=== PATIENT | male | born 1940 | race Caucasian/White ===

== ENCOUNTER 2021-07-23 19:04 | Inpatient (IN) | payer MEDICARE, OTHER ==
[~2021-07-23] VITALS: Ht 172.7 cm; Wt 61.7 kg
[~2021-07-23 19:04] MED LIST: ATOR-2 PO; ETOMIDATE 2MG/ML 10ML VIAL IV ONE; SUCCINYLCHOLINE CHLORIDE 200MG/10ML IV ONE; VERA240C2 PO; WARF-53 PO
[2021-07-23] MEDS: ACETAMINOPHEN 325MG TABLET PO STA ×2 (19:22→22:13)
[2021-07-23] MEDS ORDERED: SODIUM CHLORIDE 0.9% 1000ML BAG (SEPSIS BOLUS) IV ONE (19:30)
[2021-07-23 19:39] LABS: CHLORIDE 106 mEq/L (98-107)
[2021-07-23 19:42] LABS: INR 1.6; PROTHROMBIN TIME 16.1 sec (9.6-11.0)
[2021-07-23] MEDS ORDERED: PIPERACILLIN/TAZ 3.375G PREMIX 50 ML IV NR (19:44)
[2021-07-23] MEDS ORDERED: PIPERACILLIN/TAZOBACTAM 3.375GM/50ML PREMIX IV ONE (19:45)
[2021-07-23] MEDS ORDERED: AMIODARONE HCL 900 MG in DEXT 5% WATER 482 ML IV SCH ×2 (20:30→20:45)
[2021-07-23] MEDS ORDERED: AMIODARONE HCL 150 MG in DEXT 5% WATER 100 ML IV ONE (20:30)
[2021-07-23 21:03] LABS: BASOPHILS % 0.4 % (0.0-2.0); EOSINOPHILS % 0.5 % (0.0-5.0); HEMATOCRIT. 37.7 % (42.0-52.0); HEMOGLOBIN. 12.3 g/dL (14.0-18.0); MEAN CORPUSCULAR HEMOGLOBIN 34.2 pg (28.0-32.0); MEAN CORPUSCULAR VOLUME 104.8 fL (80.0-94.0); MONOCYTES % 9.6 % (2.0-8.0); NEUTROPHILS % 65.5 % (40.0-76.0); RED CELL DISTRIBUTION WIDTH 16.7 % (11.6-14.6)
[2021-07-23] MEDS ORDERED: MANNITOL 12.5G (25%) VIAL 50ML IV ONE (22:15)
[2021-07-23] MEDS ORDERED: DEXAMETHASONE 4MG/ML 1ML VIAL IV ONE (22:15)
[2021-07-23] MEDS ORDERED: LEVETIRACETAM 500MG PREMIX 100 ML IV ONE (22:15)
[2021-07-23] MEDS ORDERED: NICARDIPINE 100 MG in SODIUM CHLORIDE 0.9% 60 ML IV PRN (23:00)
[2021-07-24] VITALS (89 sets, daily range): BP systolic 78–141; BP diastolic 23–89
[2021-07-24] MEDS: DEXT 5%/LACTATED RINGERS 1,000 ML IV SCH ×2 (03:16→20:30)
[2021-07-24] MEDS: PHYTONADIONE 10MG/ML AMP SUBCUT SCH (03:19)
[2021-07-24] MEDS ORDERED: IOHEXOL-350 100 ML BOTTLE ONE (03:45)
[2021-07-24] MEDS ORDERED: MANNITOL 12.5G (25%) VIAL 50ML IV SCH (04:00)
[2021-07-24] MEDS ORDERED: LIDOCAINE HCL/EPINEPHRINE 1%-EPI 1:100,000 30 ML VIAL INFIL ONE (06:20)
[2021-07-24] MEDS ORDERED: GENTAMICIN SULF 40MG/ML 2ML VIAL ONE (06:20)
[2021-07-24] MEDS ORDERED: LACTATED RINGERS 3,000 ML IV ONE (06:21)
[2021-07-24] MEDS ORDERED: BACITRACIN 15GM TUBE TOP ONE (06:21)
[2021-07-24] MEDS ORDERED: THROMBIN (BOVINE) 5000 UNITS/VIAL TOP ONE (06:21)
[2021-07-24] MEDS ORDERED: ROCURONIUM BROMIDE 10MG/ML VIAL 5ML IV ONE (08:26)
[2021-07-24] MEDS ORDERED: NEOSTIGMINE METHYLSULFATE 1MG/ML 10 ML VIAL ONE (08:26)
[2021-07-24] MEDS ORDERED: PROPOFOL 200MG/20ML VIAL IV ONE (08:26)
[2021-07-24] MEDS ORDERED: MIDAZOLAM HCL 2 MG/2 ML VIAL ONE (08:26)
[2021-07-24] MEDS ORDERED: FENTANYL CITRATE/PF 50MCG/ML 2ML VIAL ONE (08:26)
[2021-07-24] MEDS ORDERED: GLYCOPYRROLATE 0.2 MG/ML 2ML VIAL ONE (08:27)
[2021-07-24 08:48] LABS: CLARITY URINE CLEAR (CLEAR); COLOR URINE YELLOW (YELLOW); KETONES URINE NEGATIVE (NEGATIVE); LEUKOCYTE ESTERASE URINE TRACE (NEGATIVE); NITRITE URINE NEGATIVE (NEGATIVE); OCCULT BLOOD URINE 2+ (NEGATIVE); PROTEIN URINE 1+ (NEGATIVE); SPECIFIC GRAVITY URINE 1.067 (1.005-1.030); UROBILINOGEN URINE 0.2 E.U./dL (0.2-1.0)
[2021-07-24] MEDS ORDERED: MORPHINE SULFATE 2 MG/ML CPJ (NOT FOR IM USE) IV PRN (09:00)
[2021-07-24 09:07] LABS: *AMPHETAMINES SCREEN URINE NEGATIVE (NEGATIVE)
[2021-07-24 09:08] LABS: *BARBITURATES SCREEN URINE NEGATIVE (NEGATIVE); *BENZODIAZEPINES SCREEN URINE NEGATIVE (NEGATIVE); *COCAINE SCREEN URINE NEGATIVE (NEGATIVE); METHADONE URINE SCREEN NEGATIVE (NEGATIVE); OPIATES URINE SCREEN NEGATIVE (NEGATIVE); PHENCYCLIDINE URINE SCREEN NEGATIVE (NEGATIVE)
[2021-07-24 09:09] LABS: CANNABINOID URINE SCREEN NEGATIVE (NEGATIVE)
[2021-07-24] MEDS ORDERED: ONDANSETRON HCL 4MG/2ML INJ ONE (09:19)
[2021-07-24] MEDS ORDERED: DEXAMETHASONE 4MG/ML 1ML VIAL ONE (09:19)
[2021-07-24] MEDS ORDERED: LIDOCAINE HCL 1% 10 MG/ML 10ML VIAL ONE (09:20)
[2021-07-24] MEDS ORDERED: CEFAZOLIN SODIUM 1000MG/VIAL ONE (09:20)
[2021-07-24] MEDS ORDERED: SODIUM CHLORIDE 0.9% 10ML VIAL ONE (09:20)
[2021-07-24] MEDS: PANTOPRAZOLE SODIUM 40 MG/VIAL IV SCH (09:45)
[2021-07-24] MEDS: LEVETIRACETAM 500MG PREMIX 100 ML IV SCH ×2 (09:46→20:30)
[2021-07-24] MEDS ORDERED: CHOL2000 (11:28)
[2021-07-24] MEDS ORDERED: SPIR25TA6 PO (11:29)
[2021-07-24] MEDS ORDERED: METF-873 MT (11:30)
[2021-07-24] MEDS ORDERED: CLOP75TA33 MT (11:30)
[2021-07-24] MEDS ORDERED: ROSU40TA MT (11:30)
[2021-07-24] MEDS ORDERED: ENZA40CA PO (11:31)
[2021-07-24] MEDS ORDERED: SACU1TAB MT (11:33)
[2021-07-24] MEDS ORDERED: METO-539 MT (11:33)
[2021-07-24] MEDS ORDERED: APIX5TAB MT (11:33)
[2021-07-24] MEDS ORDERED: *PATIENT'S OWN MEDICATION STORAGE XX SCH (12:45)
[2021-07-24] MEDS ORDERED: AMIODARONE HCL 900 MG in DEXT 5% WATER 482 ML IV PRN (13:00)
[2021-07-24 13:14] LABS: BASOPHILS % 0.1 % (0.0-2.0); HEMATOCRIT. 31.7 % (42.0-52.0); MEAN CORPUSCULAR HEMOGLOBIN 34.7 pg (28.0-32.0); MEAN CORPUSCULAR VOLUME 104.8 fL (80.0-94.0); MEAN PLATELET VOLUME 9.9 fl (7.4-10.4); MONOCYTES % 6.5 % (2.0-8.0); NEUTROPHILS % 77.4 % (40.0-76.0); PLATELET 69 x1000/uL (130-400); RED BLOOD CELL COUNT 3.03 mill/uL (4.7-6.1); RED CELL DISTRIBUTION WIDTH 16.9 % (11.6-14.6)
[2021-07-24 13:20] LABS: CHLORIDE 107 mEq/L (98-107)
[2021-07-24 13:22] LABS: INR 1.4; PROTHROMBIN TIME 15.1 sec (9.6-11.0)
[2021-07-24 13:24] LABS: HEMOGLOBIN. 10.5 g/dL (14.0-18.0)
[2021-07-24] MEDS: CEFAZOLIN 1000MG PREMIX 50 ML IV SCH ×2 (13:47→21:43)
[2021-07-24] MEDS ORDERED: CEFAZOLIN SODIUM 1000MG/VIAL IV SCH (14:00)
[2021-07-24 20:52] LABS: BG BASE EXCESS -4.6 mmol/L (-2.0-2.0); BG CARBOXYHEMOGLOBIN 0.2 % (0.5-1.5); BG DEOXYHEMOGLOBIN 0.9 % (0.0-5.0); BG FRACTION INSPIRED OXYGEN 100; BG HCO3 ACT 17.3 mmol/L (22.0-26.0); BG METHEMOGLOBIN 0.1 % (0.0-1.5); BG OXYGEN SATURATION 99.1 % (92.0-98.5); BG OXYHEMOGLOBIN 98.8 % (94.0-97.0); BG PCO2 23.4 mmHg (35.0-45.0); BG PH 7.487 (7.350-7.450); BG PO2 291.7 mmHg (75.0-100.0); BG SAMPLE SITE RIGHT RADIAL; BG TOTAL HEMOGLOBIN 10.8 g/dL (12.0-18.0); BG VENT MODE MASK - NRB
[2021-07-24] MEDS ORDERED: PHENYTOIN SODIUM 500 MG in SODIUM CHLORIDE 0.9% 50 ML IV NR (21:00)
[2021-07-24] MEDS: PHENYTOIN SODIUM 100MG/2ML VIAL IV SCH (21:42)
[2021-07-25] VITALS (89 sets, daily range): BP systolic 74–113; BP diastolic 29–75
[2021-07-25 05:28] LABS: BASOPHILS % 0.1 % (0.0-2.0); HEMATOCRIT. 29.5 % (42.0-52.0); LYMPHOCYTES % 12.9 % (20.0-50.0); MEAN CORPUSCULAR HEMOGLOBIN 34.9 pg (28.0-32.0); MEAN CORPUSCULAR VOLUME 103.2 fL (80.0-94.0); MEAN PLATELET VOLUME 9.9 fl (7.4-10.4); MONOCYTES % 8.5 % (2.0-8.0); NEUTROPHILS % 78.5 % (40.0-76.0); RED BLOOD CELL COUNT 2.86 mill/uL (4.7-6.1); RED CELL DISTRIBUTION WIDTH 16.9 % (11.6-14.6)
[2021-07-25 06:26] LABS: BG BASE EXCESS -7.2 mmol/L (-2.0-2.0); BG CARBOXYHEMOGLOBIN 0.3 % (0.5-1.5); BG DEOXYHEMOGLOBIN 1.1 % (0.0-5.0); BG FRACTION INSPIRED OXYGEN 60; BG HCO3 ACT 14.8 mmol/L (22.0-26.0); BG METHEMOGLOBIN 0.3 % (0.0-1.5); BG OXYGEN SATURATION 98.9 % (92.0-98.5); BG OXYHEMOGLOBIN 98.3 % (94.0-97.0); BG PCO2 20.6 mmHg (35.0-45.0); BG PH 7.473 (7.350-7.450); BG PO2 206.4 mmHg (75.0-100.0); BG TOTAL HEMOGLOBIN 10.4 g/dL (12.0-18.0); BG TOTAL RESPIRATORY RATE 25 b/min; BG VENT MODE VENT - AC
[2021-07-25 06:42] LABS: PLATELET 43 x1000/uL (130-400)
[2021-07-25] MEDS: PHENYTOIN SODIUM 100MG/2ML VIAL IV SCH ×3 (07:43→21:26)
[2021-07-25] MEDS: CEFAZOLIN 1000MG PREMIX 50 ML IV SCH ×3 (07:44→21:25)
[2021-07-25] MEDS: LEVETIRACETAM 500MG PREMIX 100 ML IV SCH ×2 (07:47→21:26)
[2021-07-25] MEDS: PANTOPRAZOLE SODIUM 40 MG/VIAL IV SCH (07:47)
[2021-07-25] MEDS: PHYTONADIONE 10MG/ML AMP SUBCUT SCH (07:47)
[2021-07-25] MEDS ORDERED: SODIUM BICARBONATE 8.4% 1 MEQ/ML 50ML SYR IV NR ×2 (09:15→23:00)
[2021-07-25] MEDS: DEXT 5%/0.45% NACL 1000ML 1,000 ML IV SCH ×2 (09:24→21:26)
[2021-07-25] MEDS ORDERED: DIGOXIN 500MCG/2ML AMP IV NR (12:15)
[2021-07-25] MEDS: PIPERACILLIN/TAZOBACTAM 3.375 G in DEXTROSE 5% WATER 50 ML IV SCH ×2 (12:54→21:27)
[2021-07-25] MEDS ORDERED: NALOXONE HCL 0.4MG/ML VIAL IV PRN (14:15)
[2021-07-25] MEDS: PHENYLEPHRINE 100 MG in DEXT 5% WATER 240 ML IV PRN (17:23)
[2021-07-25] MEDS ORDERED: SODIUM CHLORIDE 0.9% 1,000 ML IV SCH (19:00)
[2021-07-25 22:40] LABS: BG BASE EXCESS -14.2 mmol/L (-2.0-2.0); BG CARBOXYHEMOGLOBIN 0.2 % (0.5-1.5); BG DEOXYHEMOGLOBIN 1.3 % (0.0-5.0); BG FRACTION INSPIRED OXYGEN 100; BG METHEMOGLOBIN 0.5 % (0.0-1.5); BG OXYGEN SATURATION 98.7 % (92.0-98.5); BG PCO2 15.6 mmHg (35.0-45.0); BG PH 7.378 (7.350-7.450); BG SAMPLE SITE RIGHT FEMORAL; BG TOTAL HEMOGLOBIN 9.2 g/dL (12.0-18.0); BG VENT MODE VENT - AC
[2021-07-25] MEDS ORDERED: SODIUM CHLORIDE 0.9% 1,000 ML IV ONE (23:00)
[2021-07-26] VITALS (138 sets, daily range): BP systolic 60–136; BP diastolic 23–89
[2021-07-26] MEDS: CEFAZOLIN 1000MG PREMIX 50 ML IV SCH (06:00)
[2021-07-26 06:31] LABS: HEMATOCRIT. 34.7 % (42.0-52.0); HEMOGLOBIN. 10.4 g/dL (14.0-18.0); MEAN CORPUSCULAR HEMOGLOBIN 34.8 pg (28.0-32.0); MEAN CORPUSCULAR VOLUME 115.9 fL (80.0-94.0); MEAN PLATELET VOLUME 10.8 fl (7.4-10.4); RED BLOOD CELL COUNT 2.99 mill/uL (4.7-6.1); RED CELL DISTRIBUTION WIDTH 19.1 % (11.6-14.6)
[2021-07-26 07:21] LABS: PLATELET 30 x1000/uL (130-400)
[2021-07-26] MEDS: NOREPINEPHRINE 8 MG in DEXT 5% WATER 242 ML IV PRN ×5 (07:27→21:50)
[2021-07-26] MEDS ORDERED: DEXTROSE 50% WATER 50ML SYRINGE IV ONE (07:30)
[2021-07-26] MEDS ORDERED: DEXTROSE 50% WATER 50ML SYRINGE IV NR (07:30)
[2021-07-26] MEDS ORDERED: INSULIN REGULAR (HUMULIN R) 300UNITS/3ML VIAL IV NR (07:30)
[2021-07-26] MEDS ORDERED: CALCIUM CHLORIDE 1GM/10ML SYR IV ONE (07:30)
[2021-07-26] MEDS: SODIUM BICARBONATE 8.4% 1 MEQ/ML 50ML SYR IV NR ×2 (07:50→09:41)
[2021-07-26] MEDS ORDERED: CALCIUM CHLORIDE 1GM/10ML SYR IV NR (08:00)
[2021-07-26] MEDS ORDERED: LIDOCAINE HCL 1% 20ML VIAL (Pyxis) INJ ONE (08:04)
[2021-07-26 09:06] LABS: BG BASE EXCESS -18.1 mmol/L (-2.0-2.0); BG CARBOXYHEMOGLOBIN 0.3 % (0.5-1.5); BG DEOXYHEMOGLOBIN 0.8 % (0.0-5.0); BG FRACTION INSPIRED OXYGEN 100; BG HCO3 ACT 8.1 mmol/L (22.0-26.0); BG METHEMOGLOBIN 0.4 % (0.0-1.5); BG OXYGEN SATURATION 99.2 % (92.0-98.5); BG OXYHEMOGLOBIN 98.5 % (94.0-97.0); BG PCO2 20.9 mmHg (35.0-45.0); BG PH 7.207 (7.350-7.450); BG PO2 303.7 mmHg (75.0-100.0); BG SAMPLE SITE RIGHT FEMORAL; BG TOTAL HEMOGLOBIN 8.8 g/dL (12.0-18.0); BG VENT MODE VENT - AC
[2021-07-26] MEDS: PANTOPRAZOLE SODIUM 40 MG/VIAL IV SCH (09:41)
[2021-07-26] MEDS: PIPERACILLIN/TAZOBACTAM 3.375 G in DEXTROSE 5% WATER 50 ML IV SCH ×3 (09:41→21:58)
[2021-07-26] MEDS: PHENYTOIN SODIUM 100MG/2ML VIAL IV SCH ×3 (09:41→21:56)
[2021-07-26] MEDS: LEVETIRACETAM 500MG PREMIX 100 ML IV SCH ×2 (09:41→21:51)
[2021-07-26] MEDS: PHYTONADIONE 10MG/ML AMP SUBCUT SCH (09:44)
[2021-07-26] MEDS ORDERED: SODIUM BICARBONATE 8.4% 1 MEQ/ML 50ML SYR IV NR (11:00)
[2021-07-26] MEDS: SODIUM BICARBONATE 100 MEQ in DEXTROSE 5% WATER 1,000 ML IV SCH (12:45)
[2021-07-26] MEDS ORDERED: SODIUM POLYSTYRENE SULFONATE 15 G/60 ML BOT PR NR (13:00)
[2021-07-26 16:34] LABS: BG BASE EXCESS -12.7 mmol/L (-2.0-2.0); BG CARBOXYHEMOGLOBIN 0.3 % (0.5-1.5); BG DEOXYHEMOGLOBIN 1.3 % (0.0-5.0); BG FRACTION INSPIRED OXYGEN 100; BG METHEMOGLOBIN 0.7 % (0.0-1.5); BG OXYGEN SATURATION 98.7 % (92.0-98.5); BG OXYHEMOGLOBIN 97.7 % (94.0-97.0); BG PCO2 19.4 mmHg (35.0-45.0); BG PH 7.371 (7.350-7.450); BG PO2 191.3 mmHg (75.0-100.0); BG SAMPLE SITE RIGHT RADIAL; BG TOTAL HEMOGLOBIN 8.5 g/dL (12.0-18.0); BG VENT MODE VENT - AC
[2021-07-26 17:04] LABS: NUCLEATED RED BLOOD CELLS 18 /100 WBC; PLATELET ESTIMATE MARKEDLY DECREASED
[2021-07-26] MEDS: DEXT 5%/0.45% NACL 1000ML 1,000 ML IV SCH (19:20)
[2021-07-26] MEDS: VASOPRESSIN 20 UNIT in SODIUM CHLORIDE 0.9% 99 ML IV PRN (19:45)
[2021-07-26] MEDS: PHENYLEPHRINE 100 MG in DEXT 5% WATER 240 ML IV PRN (22:00)
[2021-07-26] MEDS: DOPAMINE 400MG/250ML PREMIX 250 ML IV PRN (22:33)
[2021-07-27] VITALS (29 sets, daily range): BP systolic 38–108; BP diastolic 27–48
[2021-07-27] MEDS: NOREPINEPHRINE 32 MG in DEXT 5% WATER 218 ML IV PRN ×3 (02:05→08:12)
[2021-07-27] MEDS: VASOPRESSIN 20 UNIT in SODIUM CHLORIDE 0.9% 99 ML IV PRN (02:39)
[2021-07-27] MEDS: DOPAMINE 400MG/250ML PREMIX 250 ML IV PRN ×2 (02:39→09:02)
[2021-07-27] MEDS: SODIUM BICARBONATE 100 MEQ in DEXTROSE 5% WATER 1,000 ML IV SCH (03:10)
[2021-07-27] MEDS: PIPERACILLIN/TAZOBACTAM 3.375 G in DEXTROSE 5% WATER 50 ML IV SCH (05:36)
[2021-07-27] MEDS: PHENYTOIN SODIUM 100MG/2ML VIAL IV SCH (06:27)
[2021-07-27] MEDS: EPINEPHRINE 10 MG in SODIUM CHLORIDE 0.9% 240 ML IV PRN ×2 (06:30→09:02)
[2021-07-27] MEDS ORDERED: SODIUM BICARBONATE 8.4% 1 MEQ/ML 50ML SYR IV NR ×2 (08:00→08:15)
[2021-07-27] MEDS: PHENYLEPHRINE 100 MG in DEXT 5% WATER 240 ML IV PRN (08:13)
[2021-07-27] MEDS: LEVETIRACETAM 500MG PREMIX 100 ML IV SCH (08:13)
[2021-07-27] MEDS: PANTOPRAZOLE SODIUM 40 MG/VIAL IV SCH (08:13)
[2021-07-27] MEDS ORDERED: INSULIN REGULAR (HUMULIN R) 300UNITS/3ML VIAL IV NR (08:15)
[2021-07-27] MEDS ORDERED: DEXTROSE 50% WATER 50ML SYRINGE IV NR (08:15)
[2021-07-27] MEDS ORDERED: EPINEPHRINE 0.1MG/ML (1:10,000) 10ML SYR ONE (08:48)
[2021-07-27] MEDS ORDERED: CALCIUM CHLORIDE 1GM/10ML SYR IV ONE (08:48)
[2021-07-27] MEDS ORDERED: ATROPINE SULFATE 1MG/10ML SYR ONE (08:48)
[2021-07-27] MEDS ORDERED: SODIUM BICARBONATE 8.4% 1 MEQ/ML 50ML SYR IV ONE (08:48)
[2021-07-27] MEDS ORDERED: DEXTROSE 50% WATER 50ML SYRINGE IV ONE (08:48)
[2021-07-27 09:38] LABS: BG HCO3 ACT 10.3 mmol/L (22.0-26.0); BG PCO2 33.4 mmHg (35.0-45.0); BG PH 7.105 (7.350-7.450); BG PO2 177.1 mmHg (75.0-100.0); BG SAMPLE SITE RIGHT FEMORAL; BG TOTAL HEMOGLOBIN < 4.5 g/dL (12.0-18.0); BG VENT MODE VENT - AC
[2021-07-27] MEDS ORDERED: SODIUM POLYSTYRENE SULFONATE 15 G/60 ML BOT PR NR (10:00)
[2021-07-27] MEDS ORDERED: SODIUM BICARBONATE 8.4% 1 MEQ/ML 50ML SYR IV SCH (12:00)
[2021-07-27 20:18] LABS: PLATELET 36 x1000/uL (130-400)
== END 2021-07-27 09:37 | DRG 853 ==
LOC: ER 19:04 → MICUNO 20:53 → ENRESERV 07-24 00:18
PROVIDERS: ADMIT Internal Medicine; ATTEND Internal Medicine
PROC: 00C40ZZ Extirpation of Matter from Intracranial Subdural Space, Open Approach (ICD-10-PCS; principal; 2021-07-24)
PROC: 30233K1 Transfusion of Nonautologous Frozen Plasma into Peripheral Vein, Percutaneous Approach (ICD-10-PCS; 2021-07-24)
PROC: 30233R1 Transfusion of Nonautologous Platelets into Peripheral Vein, Percutaneous Approach (ICD-10-PCS; 2021-07-24)
PROC: 5A2204Z Restoration of Cardiac Rhythm, Single (ICD-10-PCS; 2021-07-25)
PROC: B54MZZA Ultrasonography of Right Upper Extremity Veins, Guidance (ICD-10-PCS; 2021-07-26)
PROC: 05HY33Z Insertion of Infusion Device into Upper Vein, Percutaneous Approach (ICD-10-PCS; 2021-07-26)
PROC: 5A12012 Performance of Cardiac Output, Single, Manual (ICD-10-PCS; 2021-07-27)
PROC: 5A2204Z Restoration of Cardiac Rhythm, Single (ICD-10-PCS; 2021-07-27)
DX: A41.9 Sepsis, unspecified organism (principal); S06.6X9A Traumatic subarachnoid hemorrhage with loss of consciousness of unspecified duration, initial encounter; S06.5X9A Traumatic subdural hemorrhage with loss of consciousness of unspecified duration, initial encounter; E43 Unspecified severe protein-calorie malnutrition; G93.41 Metabolic encephalopathy; I21.4 Non-ST elevation (NSTEMI) myocardial infarction; J18.9 Pneumonia, unspecified organism; J96.01 Acute respiratory failure with hypoxia; G93.6 Cerebral edema; I47.2 Ventricular tachycardia; I50.22 Chronic systolic (congestive) heart failure; N17.9 Acute kidney failure, unspecified; N39.0 Urinary tract infection, site not specified; I48.92 Unspecified atrial flutter; D68.9 Coagulation defect, unspecified; E87.5 Hyperkalemia; Z20.822 Contact with and (suspected) exposure to COVID-19; D64.9 Anemia, unspecified; D69.6 Thrombocytopenia, unspecified; I48.0 Paroxysmal atrial fibrillation; W18.39XA Other fall on same level, initial encounter; I11.0 Hypertensive heart disease with heart failure; I25.10 Atherosclerotic heart disease of native coronary artery without angina pectoris; I25.5 Ischemic cardiomyopathy; I34.0 Nonrheumatic mitral (valve) insufficiency; Z79.01 Long term (current) use of anticoagulants; Z87.891 Personal history of nicotine dependence; Z85.46 Personal history of malignant neoplasm of prostate; Z95.1 Presence of aortocoronary bypass graft; Y93.89 Activity, other specified; Y92.89 Other specified places as the place of occurrence of the external cause; Y99.8 Other external cause status; Z68.20 Body mass index [BMI] 20.0-20.9, adult
CPT/HCPCS: 36415; 36600; 70496; 70498; 71045; 76937; 80048; 80053; 80185; 80305; 81003; 82375; 82805; 82962; 83605; 83735; 83880; 84132; 84153; 84484; 85025; 86850; 86900; 86927; 87070; 87186; 87426; 88304; 92950; 93005; 93306; 94002; 94003; 94640; 99291; C1713; C1725; C1758; C1769; C9113; J0282; J0330; J0461; J0690; J1100; J1160; J1165; J1265; J1580; J1815; J1953; J2150; J2250; J2370; J2405; J2543; J2704; J2710; J3010; J3430; J3490; J7030; J7040; J7050; J7060; J7070; J7120; J7121; P9017; P9034; Q9967; G0103